=== PATIENT | female | born 1965 | race Caucasian/White ===

== ENCOUNTER → 2019-12-11 | Outpatient (CLI) | payer MEDICAID ==
[2019-12-11 10:43] LABS: Basophils # (A) 0.1 k/uL (0-0.2); Basophils % (A) 1 %; Eosinophils # (A) 0.1 k/uL (0-0.7); Eosinophils % (A) 2 %; HCT 46.6 % (34.0-46.0); HGB 15.2 gm/dL (11.4-16.0); Lymphocytes # (A) 2.2 k/uL (1.0-4.8); Lymphocytes % (A) 25 %; MCH 32.5 pg (25.0-35.0); MCHC 32.5 g/dL (31.0-37.0); MCV 99.9 fL (80.0-100.0); Macrocytosis Slight; Mean Platelet Volume 7.9; Monocytes # (A) 0.5 k/uL (0-1.0); Monocytes % (A) 6 %; Neutrophils # (A) 5.7 k/uL (1.3-7.7); Neutrophils % (A) 65 %; Platelet Count 232 k/uL (150-450); RBC 4.67 m/uL (3.80-5.40); RDW 14.4 % (11.5-15.5); WBC 8.7 k/uL (3.8-10.6)
[2019-12-11 14:30] LABS: African American GFR (CKD) 113.8 (60.0-200.0); Albumin 4.9 g/dL (3.80-4.90); Albumin/Globulin Ratio 2.13 (1.60-3.17); Anion Gap 6.4 mmol/L (4.00-12.00); BUN/Creat Ratio 14.29 Ratio (12.00-20.00); Calcium 9.6 mg/dL (8.7-10.3); Carbon Dioxide 28.6 mmol/L (21.6-31.8); Chol/HDL Ratio 3.53; Globulin 2.3 g/dL (1.6-3.3); LDL Cholesterol,Calculated 120.8 mg/dL (0.0-131.0); Non-African American GFR(CKD) 98.2 (60.0-200.0); Potassium 4.3 mmol/L (3.5-5.5); Total Bilirubin 0.6 mg/dL (0.3-1.2); Total Protein 7.2 g/dL (6.2-8.2); VLDL Calculation 28.2 mg/dL (5.00-40.00)
== END | disposition home or self-care (01) ==
LOC: LABWHC1 08:49
PROVIDERS: ATTEND Family Medicine
DX: I10 Essential (primary) hypertension (principal); Z13.29 Encounter for screening for other suspected endocrine disorder; E78.00 Pure hypercholesterolemia, unspecified
CPT/HCPCS: 36415; 80053; 80061; 84443; 85025

== ENCOUNTER → 2020-03-06 | Outpatient (CLI) | payer OTHER ==
--- NOTE | 2020-03-06 15:58 | BD ---
EXAMINATION TYPE: Axial Bone Density DATE OF EXAM: 03/06/2020 COMPARISON: NONE CLINICAL HISTORY: Height: 5 FT 4 IN Weight: FRAX RISK QUESTIONS: Alcohol (3 or more units per day): NO Family History (Parent hip fracture): NO Glucocorticoids (More than 3mos): NO (Ex: prednisone, prednisolone, methylprednisolone, dexamethasone, and hydrocortisone). History of Fracture in Adulthood: NO Secondary Osteoporosis: 1. Type 1 Diabetes: NO 2. Hyperthyroidism: NO 3. Menopause before 45: NO 4. Malnutrition: NO 5. Chronic liver disease: NO Rheumatoid Arthritis: NO Current Tobacco Use: YES RISK FACTORS HISTORY OF: Family History of Osteoporosis: NO Active: YES Diet low in dairy products/other sources of calcium: NO Postmenopausal woman: AGE 50 Take estrogen and/or progesterone medications: NONE Lost more than 2 inches in height since high school: YES MEDICATIONS: Additional Medications: ZOLOFT, BLOOD PRESSURE MEDS X 2 , NORCO, CLONIPIN, Additional History: CARPAL TUNNEL SURG RT 2018 EXAM MEASUREMENTS: Bone mineral densitometry was performed using the [employer] System. Bone mineral density as measured about the Lumbar spine is: ----- L1-L4(G/cm2): 1.158 T Score Values are as follows: ----- L2: -0.9 ----- L3: 0.0 ----- L4: 0.5 ----- L1-L4: -0.2 BASELINE Bone mineral density about the R hip (g/cm2): 0.946 Bone mineral density about the L hip (g/cm2): 0.957 T Score values are as follows: -----R Neck: -0.7 -----L Neck: -0.6 -----R Total: -0.5 -----L Total: -0.6 BASELINE IMPRESSION: Normal (Values between +1 and -1 indicate normal bone mass). Consider repeating this study in 5 year s or sooner if there is some new clinical indication. NOTE: T-SCORE=SD OF THE YOUNG ADULT MEAN.
--- NOTE | 2020-03-07 11:27 | MM ---
Reason for exam: screening (asymptomatic). Last mammogram was performed 9 years and 9 months ago. History: Patient is postmenopausal. Family history of premenopausal breast cancer in sister at age 38 and breast cancer in 2 maternal aunts. Physical Findings: A clinical breast exam by your physician is recommended on an annual basis and results should be correlated with mammographic findings. MG Screening Mammo w CAD Bilateral CC and MLO view(s) were taken. No prior studies available for comparison. The breast tissue is heterogeneously dense. This may lower the sensitivity of mammography. Finding: There is a typically benign 9 mm equal density (isodense), oval mass in the subareolar position. ASSESSMENT: Benign, BI-RAD 2 RECOMMENDATION: Routine screening mammogram of both breasts in 1 year.
== END | disposition home or self-care (01) ==
LOC: RADMAMWWP 07:09
PROVIDERS: ATTEND Family Medicine
DX: Z12.31 Encounter for screening mammogram for malignant neoplasm of breast (principal); Z78.0 Asymptomatic menopausal state
CPT/HCPCS: 77067; 77080

== ENCOUNTER 2020-10-28 16:21 | Emergency (ER) | payer OTHER ==
--- NOTE | 2020-10-28 17:44 | ED ---
Back Pain HPI <Sierra Hurley - Last Filed: 10/28/20 17:41> <Cruz Quezada - Last Filed: 10/28/20 21:14> - General Chief Complaint: Back Pain/Injury Stated Complaint: back pain Time Seen by Provider: 10/28/20 17:42 - History of Present Illness Initial Comments: Patient is a 55-year-old female with history of chronic low back pain presenting with complaints of right sided lower back pain that increased today. She states she is to the point where it is getting hard to ambulate. No saddle paresthesia, no bowel or bladder incontinence, no numbness and the anterior lower extremities. She denies history of kidney stones. No fevers or chills, no abdominal pain, no dysuria, no hematuria. Currently she states her pain is 10/10. (Sierra Hurley) Patient is a 55-year-old female presents emergency department complaining of right flank pain with radiation to the right didn't. She notes that she does have chronic low back pain but this feels different than her usual. She denied any history of kidney stones. She denied any saddle anesthesia bladder or bowel incontinence/retention. She was otherwise a well-appearing 55-year-old female in no apparent distress or pain. She denied any chest pain shortness of breath headache vomiting diarrhea constipation fever fatigue chills. (Cruz Quezada) - Related Data Previous Rx's Medication Instructions Recorded Cephalexin [Keflex] 500 mg PO Q6HR #40 cap 10/28/20 Allergies Allergy/AdvReac Type Severity Reaction Status Date / Time No Known Allergies Allergy Verified 10/28/20 17:41 Review of Systems ROS Other: All systems not noted in ROS Statement are negative. <Sierra Hurley - Last Filed: 10/28/20 17:41> ROS Other: All systems not noted in ROS Statement are negative. <Cruz Quezada - Last Filed: 10/28/20 21:14> ROS Statement: Those systems with pertinent positive or pertinent negative responses have been documented in the HPI. General Exam Limitations: no limitations General appearance: alert, in no apparent distress Head exam: Present: atraumatic Eye exam: Present: normal appearance <Sierra Hurley - Last Filed: 10/28/20 17:41> General appearance: alert, in no apparent distress Head exam: Present: atraumatic, normocephalic, normal inspection Eye exam: Present: normal appearance, PERRL, EOMI. Absent: scleral icterus, conjunctival injection, periorbital swelling ENT exam: Present: normal exam, mucous membranes moist Neck exam: Present: normal inspection Respiratory exam: Present: normal lung sounds bilaterally. Absent: respiratory distress, wheezes, rales, rhonchi, stridor Cardiovascular Exam: Present: regular rate, normal rhythm, normal heart sounds. Absent: systolic murmur, diastolic murmur, rubs, gallop, clicks GI/Abdominal exam: Present: soft, normal bowel sounds. Absent: distended, tenderness, guarding, rebound, rigid Extremities exam: Present: normal inspection, full ROM, normal capillary refill. Absent: tenderness, pedal edema, joint swelling, calf tenderness Back exam: Present: normal inspection, full ROM. Absent: CVA tenderness (R) Neurological exam: Present: alert, oriented X3 Psychiatric exam: Present: normal affect, normal mood Skin exam: Present: warm, dry, intact, normal color. Absent: rash <Cruz Quezada - Last Filed: 10/28/20 21:14> Course Vital Signs 10/28/20 17:41 Temperature 97.9 F Pulse Rate 105 H Respiratory 16 Rate Blood Pressure 111/72 O2 Sat by Pulse 95 Oximetry Medical Decision Making - Lab Data Result diagrams: 10/28/20 20:26 10/28/20 20:26 - Radiology Data Radiology results: report reviewed, image reviewed <Cruz Quezada - Last Filed: 10/28/20 21:14> - Medical Decision Making 55-year-old female complaining of right flank pain with radiation of the abdomen, history of chronic low back pain. Labs, chest x-ray, KUB ordered. CBC and CMP unremarkable, urinalysis has elevated white blood cells, 1 g Rocephin ordered. (Cruz Quezada) - Lab Data Lab Results 10/28/20 10/28/20 10/28/20 Range/Units 20:26 20:26 20:26 WBC 8.6 (3.8-10.6) k/uL RBC 4.20 (3.80-5.40) m/uL Hgb 13.2 (11.4-16.0) gm/dL Hct 41.4 (34.0-46.0) % MCV 98.6 (80.0-100.0) fL MCH 31.4 (25.0-35.0) pg MCHC 31.8 (31.0-37.0) g/dL RDW 14.2 (11.5-15.5) % Plt Count 184 (150-450) k/uL MPV 7.7 Neutrophils % 72 % Lymphocytes % 20 % Monocytes % 5 % Eosinophils % 0 % Basophils % 0 % Neutrophils # 6.2 (1.3-7.7) k/uL Lymphocytes # 1.7 (1.0-4.8) k/uL Monocytes # 0.4 (0-1.0) k/uL Eosinophils # 0.0 (0-0.7) k/uL Basophils # 0.0 (0-0.2) k/uL Sodium 132 L (137-145) mmol/L Potassium 4.4 (3.5-5.1) mmol/L Chloride 99 (98-107) mmol/L Carbon Dioxide 24 (22-30) mmol/L Anion Gap 9 mmol/L BUN 12 (7-17) mg/dL Creatinine 0.41 L (0.52-1.04) mg/dL Est GFR (CKD-EPI)AfAm >90 (>60 ml/min/1.73 sqM) Est GFR (CKD-EPI)NonAf >90 (>60 ml/min/1.73 sqM) Glucose 89 (74-99) mg/dL Calcium 9.0 (8.4-10.2) mg/dL Total Bilirubin 0.6 (0.2-1.3) mg/dL AST 58 H (14-36) U/L ALT 41 H (4-34) U/L Alkaline Phosphatase 78 (38-126) U/L Total Protein 6.8 (6.3-8.2) g/dL Albumin 4.0 (3.5-5.0) g/dL Urine Color Yellow Urine Appearance Cloudy H (Clear) Urine pH 6.0 (5.0-8.0) Ur Specific [place] 1.020 (1.001-1.035) Urine Protein Negative (Negative) Urine Glucose (UA) Negative (Negative) Urine Ketones 2+ H (Negative) Urine Blood Negative (Negative) Urine Nitrite Negative (Negative) Urine Bilirubin Negative (Negative) Urine Urobilinogen <2.0 (<2.0) mg/dL Ur Leukocyte Esterase Large H (Negative) Urine RBC 4 (0-5) /hpf Urine WBC 34 H (0-5) /hpf Ur Squamous Epith Cells 9 H (0-4) /hpf Hyaline Casts 1 (0-2) /lpf Urine Mucus Rare H (None) /hpf - Radiology Data KUB: No acute process. X-ray lumbar spine: Moderate degenerative changes without acute osseous abnormality. (Cruz Quezada) Disposition <Sierra Hurley - Last Filed: 10/28/20 17:41> Is patient prescribed a controlled substance at d/c from ED?: No Time of Disposition: 21:14 <Cruz Quezada - Last Filed: 10/28/20 21:14> Clinical Impression: Urinary tract infection, Right flank pain Disposition: HOME SELF-CARE Condition: Stable Instructions (If sedation given, give patient instructions): Abdominal Pain (ED), Urinary Tract Infection in Women (ED) Additional Instructions: Please return to the Emergency Department if symptoms worsen or any other concerns. Follow-up with primary care 1-2 days. Take antibiotics as prescribed until complete. Increase oral fluids. Prescriptions: Cephalexin [Keflex] 500 mg PO Q6HR #40 cap Referrals: Nisreen Mason MD [Primary Care Provider] - 1-2 days
--- NOTE | 2020-10-28 18:28 | XR ---
Result: History: Pain. Comparison: None available. Technique: . views of the lumbar spine. Findings: The bone mineralization is normal. Images of the lumbar spine demonstrate 5 lumbar-type vertebrae. There is no acute fracture or sublux ation. The vertebral body heights are grossly preserved. There is moderate disc height narrowing at T11-L2 and L5-S1. There is moderate facet arthropathy in the lower lumbar spine. No significant spond ylolisthesis. There is subtle mild levoconvex curvature of the lumbar spine. Impression: Moderate degenerative changes without acute osseous abnormality.
[2020-10-28] MEDS ORDERED: KETOROLAC 15 MG/ML 1 ML VIAL IM STA (19:52)
[2020-10-28] MEDS ORDERED: KETOROLAC 15 MG/ML 1 ML VIAL IVP STA (20:34)
--- NOTE | 2020-10-28 20:45 | XR ---
EXAM: Abdomen radiograph. HISTORY: Pain. TECHNIQUE: Supine AP view. COMPARISON: None available. FINDINGS: There are nondilated bowel loops with a nonobstructive pattern. There are no pathologic calcification s. No acute osseous abnormality seen. IMPRESSION: No acute process.
[2020-10-28 20:52] LABS: ALT 41 U/L (4-34); AST 58 U/L (14-36); African American GFR (CKD) >90 (>60 ml/min/1.73 sqM); Alkaline Phosphatase 78 U/L (38-126); Anion Gap 9 mmol/L; Basophils % (A) 0 %; Blood Urea Nitrogen 12 mg/dL (7-17); Carbon Dioxide 24 mmol/L (22-30); Chloride 99 mmol/L (98-107); Eosinophils % (A) 0 %; Glucose 89 mg/dL (74-99); HCT 41.4 % (34.0-46.0); HGB 13.2 gm/dL (11.4-16.0); Lymphocytes # (A) 1.7 k/uL (1.0-4.8); Lymphocytes % (A) 20 %; MCH 31.4 pg (25.0-35.0); MCHC 31.8 g/dL (31.0-37.0); MCV 98.6 fL (80.0-100.0); Mean Platelet Volume 7.7; Monocytes # (A) 0.4 k/uL (0-1.0); Monocytes % (A) 5 %; Neutrophils # (A) 6.2 k/uL (1.3-7.7); Neutrophils % (A) 72 %; Non-African American GFR(CKD) >90 (>60 ml/min/1.73 sqM); Platelet Count 184 k/uL (150-450); RDW 14.2 % (11.5-15.5); Sodium 132 mmol/L (137-145); Total Bilirubin 0.6 mg/dL (0.2-1.3); Total Protein 6.8 g/dL (6.3-8.2); WBC 8.6 k/uL (3.8-10.6)
[2020-10-28 20:56] LABS: Appearance,Urine Cloudy (Clear); Bilirubin,Urine Negative (Negative); Blood,Urine Negative (Negative); Color,Urine Yellow; Glucose,Urine (UA) Negative (Negative); Hyaline Casts,Urine 1 /lpf (0-2); Ketones,Urine 2+ (Negative); Leukocyte Esterase,Urine Large (Negative); Mucus,Urine Rare /hpf; Nitrite,Urine Negative (Negative); Potassium 4.4 mmol/L (3.5-5.1); Protein,Urine Negative (Negative); RBC,Urine 4 /hpf (0-5); Squamous Epithelial Cell,Urine 9 /hpf (0-4); Urobilinogen,Urine <2.0 mg/dL (<2.0); WBC,Urine 34 /hpf (0-5)
[2020-10-28] MEDS ORDERED: cefTRIAXone IN SWFI 1,000 MG/10 ML SYRINGE IVP STA (21:11)
[2020-10-28 21:27] VITALS: BP 115/84; PULSE 98; RESP 20; TEMP 98.2
== END 2020-10-28 21:35 | disposition home or self-care (01) ==
LOC: EC 16:21
DX: N39.0 Urinary tract infection, site not specified (principal); R10.9 Unspecified abdominal pain; M54.5 Low back pain; D72.829 Elevated white blood cell count, unspecified
CPT/HCPCS: 36415; 80053; 85025; 81001; 87086; 72100; 74018; 99284; 96374; 96375; J0696; J1885

== ENCOUNTER → 2020-12-17 | Outpatient (CLI) | payer OTHER ==
--- NOTE | 2020-12-18 08:23 | CT ---
EXAMINATION TYPE: CT ChestAbdPelvis w con DATE OF EXAM: 12/17/2020 COMPARISON: None HISTORY: 55-year-old female SOB, weakness. R06.00 Dyspnea, unspecified R10.31 Right lower quadrant TECHNIQUE: Contiguous axial scanning of the chest, abdomen, and pelvis performed with IV Contrast, pa tient injected with 100 mL of Isovue 300. Delayed images through the kidneys were obtained. Coronal/s agittal reconstructions performed. CT DLP: 593.1 mGycm Automated exposure control for dose reduction was used. FINDINGS: CHEST: Stable subareolar nodularity compared to 03/06/2020 on the right. Heart normal size without pericardial effusion. Borderline ectasia aortic root at 3.6 cm and mild atherosclerotic arch calcifications. Conventional [facility] vessel branching anatomy. No thoracic lymphadenopathy by CT size criteria. Biapical pleural-parenchymal scarring. Mild upper lung predominant emphysematous change. Mild depende nt atelectasis. No consolidation or pleural effusion. ABDOMEN: No focal liver lesion or biliary ductal dilatation. Portal venous system is patent. Spleen borderline enlarged at 13.7 cm measured on axial series. Gallbladder, adrenal glands, kidneys, and pancreas within normal limits. No dilated small bowel, free fluid, or free air. No mesenteric or retroperitoneal lymphadenopathy. Th ere are nonenlarged mesenteric lymph nodes are demonstrated. Normal appendix. Most of the oral contrast progressed into the proximal transverse colon. Some additi onal mild scattered contrast progressed to the rectum. Minimal diverticular change proximal sigmoid c olon. No pericolonic inflammatory change. PELVIS: Mild circumferential bladder wall thickening may relate to partial distention. Uterus is anteverted. Both ovaries are visualized. Mild atherosclerotic calcifications infrarenal abdominal aorta. No abnor mal fluid collection in the pelvis or pelvic lymphadenopathy. BONES: Mild marginal spurring at the hips. Facet arthropathy lower lumbar spine. Moderate degenerative disc disease L5-S1. Trace grade 1 retrolisthesis L1-L2. Mild degenerative disc disease mid to lower thorac ic spine. No osseous destructive process. IMPRESSION: 1. COPD WITH MILD EMPHYSEMA. 2. BORDERLINE SPLENOMEGALY AT 13.7 CM. 3. MINIMAL DIVERTICULOSIS PROXIMAL SIGMOID COLON. 4. MILD CIRCUMFERENTIAL BLADDER WALL THICKENING MAY RELATE TO PARTIAL DISTENTION OR CYSTITIS. CLINICA LLY CORRELATE. 4. OTHERWISE, NO ACUTE INFLAMMATORY PROCESS IDENTIFIED IN THE CHEST, ABDOMEN, OR PELVIS.
== END | disposition home or self-care (01) ==
LOC: RADCTMAIN 13:56
PROVIDERS: ATTEND Internal Medicine Rheumatology
DX: J44.9 Chronic obstructive pulmonary disease, unspecified (principal); K57.30 Diverticulosis of large intestine without perforation or abscess without bleeding
CPT/HCPCS: 71260; 74177; Q9967

== ENCOUNTER → 2023-01-14 | Outpatient (CLI) | payer OTHER ==
--- NOTE | 2023-01-14 13:33 | BD ---
EXAMINATION TYPE: Axial Bone Density DATE OF EXAM: 01/14/2023 CLINICAL HISTORY: 57 years old Female. ICD-10 CODE: Z78.0 ASYMPTOMATIC MENOPAUSAL Height: 64" Weight: 159.3lbs FRAX RISK QUESTIONS: Alcohol (3 or more units per day): No Family History (Parent hip fracture): No Glucocorticoids (More than 3mos): No (Ex: prednisone, prednisolone, methylprednisolone, dexamethasone, and hydrocortisone). History of Fracture in Adulthood: No Secondary Osteoporosis: 1. Type 1 Diabetes: No 2. Hyperthyroidism: No 3. Menopause before 45: No 4. Malnutrition: No 5. Chronic liver disease: No Rheumatoid Arthritis: No Current Tobacco Use: Yes RISK FACTORS HISTORY OF: Hip Fracture (Right/Left): No Spine Fracture: No History of Wrist Fracture: No Surgery to Spine/Hip(right/left)/Wrist (right/left): No Family History of Osteoporosis: No Active: Yes Diet low in dairy products/other sources of calcium: No Postmenopausal woman: Yes If Lost more than 2 inches in height since high school: No Frequent falls: No Poor Health: No Hyperparathyroidism: No Adrenal Insufficiency: No MEDICATIONS: Prednisone or other steroids: No Thyroid Medications: No Osteoporosis Medications: No Additional Medications: Blood pressure meds, cholesterol meds, anxiety meds, multivitamin supplement Additional History: None EXAM MEASUREMENTS: Bone mineral densitometry was performed using the [employer] System. Bone mineral density as measured about the Lumbar spine is: ----- L1-L4(G/cm2): 1.208 T Score Values are as follows: ----- L1: -0.3 ----- L2: -0.4 ----- L3: 0.4 ----- L4: 0.9 ----- L1-L4: 0.2 Z Score Values are as follows: ----- L1: 0.5 ----- L2: 0.3 ----- L3: 1.1 ----- L4: 1.6 ----- L1-L4: 1.0 Bone mineral density has: increased 4.3% since study of: 03/06/2020 Bone mineral density about the R hip (g/cm2): 0.948 Bone mineral density about the L hip (g/cm2): 0.970 T Score values are as follows: -----R Neck: -1.0 -----L Neck: -0.3 -----R Total: -0.5 -----L Total: -0.3 Z Score values are as follows: -----R Neck: -0.1 -----L Neck: 0.7 -----R Total: 0.1 -----L Total: 0.3 Bone mineral density has: increased 2.3% since study of: 03/06/2020 FRAX%s: The graph provided illustrates a 6.3% chance for a major osteoporotic fx and a 0.6% chance fo r the hips probability for fx in 10 years time. IMPRESSION: Normal (Values between +1 and -1 indicate normal bone mass). Consider repeating this study in 5 year s or sooner if there is some new clinical indication. NOTE: T-SCORE=SD OF THE YOUNG ADULT MEAN.
--- NOTE | 2023-01-17 18:17 | MM ---
Reason for Exam: Screening (asymptomatic). Last mammogram was performed 2 year(s) and 11 month(s) ago. Patient History: Menarche at age 11. First Full-Term at age 16. Postmenopausal. Maternal aunt had breast cancer. Maternal aunt had breast cancer. Sister had breast cancer, age 38. Risk Values: Janell 5 year model risk: 2.6%. NCI Lifetime model risk: 15.4%. Prior Study Comparison: 04/16/2009 Bilateral Screening Mammogram, [facility]. 05/20/2010 Bilateral Screening Mammogram, [facility]. 03/06/2020 Bilateral Screening Mammogram, [facility]. Tissue Density: The breast tissue is heterogeneously dense. This may lower the sensitivity of mammography. Findings: Analyzed By CAD. There are unchanged areas of bilateral asymmetric density and benign round calcifications. There is no suspicious group of microcalcifications or new suspicious mass in either breast. Overall Assessment: Benign, BI-RAD 2 Management: Screening Mammogram of both breasts in 1 year. . Patient should continue monthly self-breast exams. A clinical breast exam by your physician is recommended on an annual basis. This exam should not preclude additional follow-up of suspicious palpable abnormalities. Note on Janell scores and lifetime risk: 1. A Janell score greater than 3% is considered moderate risk. If this is the case, consider specialist referral to assess eligibility for a risk reducing agent. 2. If overall lifetime risk for the development of breast cancer is 20% or higher, the patient may qualify for future screening with alternating mammogram and breast MRI. Electronically signed and approved by: Savannah Villalba M.D. Radiologist
== END | disposition home or self-care (01) ==
LOC: RADMAMWWP 08:19
PROVIDERS: ATTEND Family Medicine
DX: Z12.31 Encounter for screening mammogram for malignant neoplasm of breast (principal); M81.8 Other osteoporosis without current pathological fracture; Z78.0 Asymptomatic menopausal state; Z72.0 Tobacco use; Z80.3 Family history of malignant neoplasm of breast
CPT/HCPCS: 77067; 77080

== ENCOUNTER → 2023-02-04 | Outpatient (CLI) | payer OTHER ==
--- NOTE | 2023-02-05 08:54 | CTL ---
EXAMINATION TYPE: CT Low Dose Lung DATE OF EXAM ORDERED: 02/04/2023 HISTORY: . Lung cancer screening CT DLP: 114.5 mGycm Automated exposure control for dose reduction was used. SCREENING VISIT: Initial COMPARISON: 12/17/2020 TECHNIQUE: Low dose computed tomography scan was performed through the chest at 1 mm thick sections a nd reconstructed images in the coronal plane at [address] DIAGNOSTIC QUALITY: Satisfactory FINDINGS: LUNG NODULES: Present, detailed below: 1. There is a 0.3 cm peripheral nodule left midlung. Series 4 image 124. 2. There is a triangular density measuring 0.9 cm in the medial right middle lobe. Series 4 image 175 . This was present previously. 3. There is stable appearing bilateral apical scarring. LUNGS: COPD: Severity: Mild Fibrosis: Severity: None Lymph nodes: None Other findings: None RIGHT PLEURAL SPACE: Effusion: None Calcification: None Thickening: None Pneumothorax: None LEFT PLEURAL SPACE: Effusion: None Calcification: None Thickening: None Pneumothorax: None HEART: Heart Size: Normal Coronary calcification: Mild Pericardial effusion: None OTHER FINDINGS: Upper abdomen: Normal Bony thorax: Normal Supraclavicular region: Normal Other: None IMPRESSION: 1. Stable density within the right middle lobe and a tiny nodule within the left lung. FOLLOW UP CT CHEST RECOMMENDATION: Follow-up low-dose CT chest one year CT LUNG RAD: Lung-Rad 2 Benign Appearance or Behavior
== END | disposition home or self-care (01) ==
LOC: RADCTMAIN 16:45
PROVIDERS: ATTEND Family Medicine
DX: Z12.2 Encounter for screening for malignant neoplasm of respiratory organs (principal); J98.4 Other disorders of lung; R91.1 Solitary pulmonary nodule; F17.210 Nicotine dependence, cigarettes, uncomplicated
CPT/HCPCS: 71271